=== PATIENT | female | born 1970 | race Caucasian/White ===

== ENCOUNTER → 2017-05-05 | Outpatient (CLI) | payer BC ==
[~2017-05-05] VITALS: Ht 172.7 cm; Wt 93.4 kg
[~2017-05-05] MED LIST: AMERGE2.5 MG PO; OMEPRAZOLE40 M1 PO; TOPAMAX50 MG PO; ZANTAC300 MG PO; ZOLOFT50 MG PO
== END | disposition home or self-care (01) ==
LOC: AMB 11:59
DX: Z12.11 Encounter for screening for malignant neoplasm of colon (principal); K29.70 Gastritis, unspecified, without bleeding; K57.90 Diverticulosis of intestine, part unspecified, without perforation or abscess without bleeding; K21.0 Gastro-esophageal reflux disease with esophagitis; F41.8 Other specified anxiety disorders; K59.00 Constipation, unspecified; R11.0 Nausea; Z80.0 Family history of malignant neoplasm of digestive organs; Z83.3 Family history of diabetes mellitus; Z80.52 Family history of malignant neoplasm of bladder
CPT/HCPCS: 88305; 88342 TC